=== PATIENT | male | born 1970 | race African-American/Black ===

== ENCOUNTER 2017-04-05 04:43 | Emergency (ER) | payer SELFPAY ==
[~2017-04-05] VITALS: Ht 180.3 cm; Wt 81.8 kg
[2017-04-05] MEDS ORDERED: KETOROLAC TROMETHAMINE 30 MG/ML VIAL IM ONE (05:30)
[2017-04-05 05:42] VITALS: BP 126/89
== END 2017-04-05 05:44 | disposition home or self-care (01) ==
LOC: EMS 04:44
DX: S02.5XXA Fracture of tooth (traumatic), initial encounter for closed fracture (principal); F12.90 Cannabis use, unspecified, uncomplicated; F17.210 Nicotine dependence, cigarettes, uncomplicated
CPT/HCPCS: 96372; 99283; J1885

== ENCOUNTER 2017-05-01 11:20 | Emergency (ER) | payer MEDICAID ==
[~2017-05-01] VITALS: Ht 180.3 cm; Wt 81.5 kg
[2017-05-01] MEDS ORDERED: SODIUM CHLORIDE 0.9% 1,000 ML IV ONE (13:30)
[2017-05-01] MEDS ORDERED: KETOROLAC TROMETHAMINE 30 MG/ML VIAL IVP ONE (13:30)
[2017-05-01] MEDS ORDERED: ONDANSETRON HCL 4 MG/2 ML VIAL IVP ONE (13:30)
[2017-05-01 14:15] VITALS: BP 122/79
== END 2017-05-01 16:06 | disposition home or self-care (01) ==
LOC: EMS 11:22
DX: K52.9 Noninfective gastroenteritis and colitis, unspecified (principal); M43.9 Deforming dorsopathy, unspecified; R51 Headache; F17.210 Nicotine dependence, cigarettes, uncomplicated; F12.90 Cannabis use, unspecified, uncomplicated
CPT/HCPCS: 96361; 96374; 96375; 99285; J1885; J2405; J7030